=== PATIENT | female | born 1980 | race Caucasian/White ===

== ENCOUNTER 2016-06-17 05:50 | Inpatient (IN) | payer OTHER ==
[2016-06-17] MEDS ORDERED: EPSOM SALT 454 GM TP PRN (06:20)
[2016-06-17] MEDS ORDERED: TERBUTALINE SULFATE 1 MG/ML VIAL IV PRN (06:20)
[2016-06-17] MEDS ORDERED: LR 1,000 ML IV PRN (06:20)
[2016-06-17] MEDS ORDERED: LIDOCAINE 1% 30 ML SDV SC PRN (06:20)
[2016-06-17] MEDS ORDERED: OXYTOCIN/RINGERS LACTATE 1,000 ML IV PRN (06:20)
[2016-06-17] MEDS ORDERED: MINERAL OIL 60 ML OIL TP PRN (06:20)
[2016-06-17 06:36] LABS: % IMMATURE GRANULYOCYTES 0.6 % (0.0-1.1); ABSOLUTE IMMATURE GRANULOCYTES 0.06 10^3/uL (0.00-0.10); ADD DIFF? NO; ADD MORPH? NO; ADD SCAN? NO; ATYPICAL LYMPHOCYTE FLAG 30 (0-99); FRAGMENT RBC FLAG 0 (0-99); HEMATOCRIT 43.9 % (38.0-47.0); HEMOGLOBIN 15.3 g/dL (12.6-16.3); LEFT SHIFT FLG 0 (0-99); LIPEMIA HEMOLYSIS FLAG 90 (0-99); MEAN CELL HEMOGLOBIN 32.3 pg (27.9-34.1); MEAN CELL HEMOGLOBIN CONCENTR. 34.9 g/dL (32.4-36.7); MEAN CELL VOLUME 92.8 fL (81.5-99.8); MEAN PLATELET VOLUME 10.2 fL (8.7-11.7); PLATELET CLUMPS FLAG 0 (0-99); PLATELET COUNT 195 10^3/uL (150-400); RED BLOOD CELL COUNT 4.73 10^6/uL (4.18-5.33); RED CELL DISTRIBUTION WIDTH 12.7 % (11.5-15.2)
--- NOTE | 2016-06-17 06:45 | OBPROG ---
OBG Progress Note Assessment/Plan: Assessment:cat 2 fhr coping fair through the contractions discussed ways to assist with pain relief tub to assist with relaxation exam 4-5/80/-1 cephalic tolac Plan:expectant management of labor 06/17/16 06:43 Subjective: Coping fair. " I am tired" I have not changed much. I just want to sleep. Objective: 06/17/16 06:20 - SVE Dilation (cm): 4 Effacement (%): 80 Station: -2 Current Contraction Pattern: Regular FHR (bpm): 135 FHR Pattern Variability: Moderate FHR Category: 1 Membranes: Intact - Physical Exam General Appearance: WD/WN, alert, no apparent distress Respiratory: lungs clear Cardiac/Chest: regular rate, rhythm Abdomen: normal bowel sounds Membranes: Intact Extremities: normal range of motion, Jodee's sign (negative bilaterally) Skin: normal color, warm/dry Neuro/Psych: no motor/sensory deficits, alert, normal mood/affect, oriented x 3 ICD10 Worksheet Patient Problems: Problems Problem Status Diagnosed Arrest of descent, delivered, current hospitalization Acute delivery delivered Acute Meconium stained amniotic fluid, delivered, current hospitalization Acute Spontaneous onset of labor Acute
--- NOTE | 2016-06-17 07:36 | GHP ---
[f rep st] HISTORY AND PHYSICAL DATE OF ADMISSION: 06/17/2016 HISTORY OF PRESENT ILLNESS: The patient is a 35-year-old, 2, para 1, with an EDC of 06/17/19 17. The patient is 41 and 6/7 weeks' gestational age. Harder, more frequent contractions x2 hours, so 0500 on 06/16/2016. MEDICAL HISTORY: The patient has a history of cystitis as a child. History of SVT, negative stress tests and negative bubble study. History of heart palpitations with a negative workup. History of n orovirus in June of 2015. 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 Desired [facility] testing. Progenity testing was negative. PAST SURGICAL HISTORY: The patient had a previous . HISTORY: With this , benign. Previous : In 10/2013, a female at 7 poun ds, 1 ounce at 42 weeks' gestation, 48 hours of labor, , arrest of descent with a failed vac uum. GYNECOLOGICAL HISTORY: Previous OCP use. Paps were within normal limits. LABS: The patient is O positive. Antibody negative. RPR is nonreactive. Rubella is immune. Hepat itis is negative. HIV is negative. Trio screen: Again, patient was a positive CF carrier, is a positive CF carrier. Gonorrhea and chlamydia are negative. AFP was negative. 1 shasha r GTT was within normal limits at 124, and GBS is negative. At 36 weeks, the baby was in the 95th percentile. YANCY was 21. The patient is desiring a . On a dmission, patient was 4-5 cm, 80% effaced, -2 station, cephalic, tiffanie irregularly. On admissi on, baby was a category 2. 500 cc LR bolus was requested. ASSESSMENT: GENERAL: Patient is awake, alert, oriented x3. LUNGS: Clear bilaterally. ABDOMEN: B owel sounds are positive in all 4 quadrants. EXTREMITIES: DTRs are 1+ bilaterally. Homans sign is negative. Contractions are firm on palpation, although irregular. PLAN OF CARE: A tub to assist with pain relief. GBS is negative. Discussed pain relief options. A t this time, patient is just using the tub to assist with pain relief and expectant management of lab or. /[id number]/MODL
[2016-06-17] MEDS ORDERED: OXYTOCIN 10 UNIT/ML VIAL ONE (08:48)
[2016-06-17] MEDS ORDERED: TERBUTALINE SULFATE 1 MG/ML VIAL ONE (08:48)
[2016-06-17] MEDS ORDERED: LIDOCAINE 1% 30 ML SDV ONE (08:48)
[2016-06-17] MEDS ORDERED: AMMONIA AROMATIC 1 EACH AMP IH ONE ×2 (08:48→08:49)
[2016-06-17] MEDS ORDERED: MISOPROSTOL 200 MCG TAB ONE (08:49)
[2016-06-17] MEDS ORDERED: PROMETHAZINE HCL 25 MG/ML INJ IM ONE (09:20)
--- NOTE | 2016-06-17 09:24 | OBPROG ---
OBG Progress Note Assessment/Plan: Assessment:cat 2 fhr coping fair through the contractions 5-7 minutes apart discussed ways to assist with pain relief/ willing to try morphine for sleep 0 re exam minimal change to the strength of the contractions tolac dr. orellana aware of poc consulted [id number] 500cc bolus with medication for sleep Plan:expectant management of labor 06/17/16 06:43 06/17/16 09:22 06/17/16 09:27 Objective: 06/17/16 06:20 Patient ABO/Rh O POSITIVE 06/17/16 06:20 Current Contraction Pattern: Irregular FHR Pattern Variability: Moderate FHR Category: 2 Membranes: Intact ICD10 Worksheet Patient Problems: Problems Problem Status Diagnosed Arrest of descent, delivered, current hospitalization Acute delivery delivered Acute Meconium stained amniotic fluid, delivered, current hospitalization Acute Spontaneous onset of labor Acute
--- NOTE | 2016-06-17 16:16 | OBPROG ---
OBG Progress Note Assessment/Plan: Assessment:cat 2 fhr change to cervix 7-8/100/-2 cephalic contractions irregular resting with the morphine sleep discussed pitocin augmentation/ arom after a few hours with pitocin discussed pain medication options with contractions and pitocin for augmentation patient and family in agreement with POC consult with dr. andreina orellana on POC tolac anesthesia informed of presence on the deck continuous monitoring Plan:expectant management of labor 06/17/16 06:43 06/17/16 09:22 06/17/16 09:27 06/17/16 16:12 Subjective: Feeling more rested more comfotable. Ok with POC pitocin and arom Objective: 06/17/16 06:20 Patient ABO/Rh O POSITIVE 06/17/16 06:20 - SVE Dilation (cm): 7 Effacement (%): 100 Station: -2 Current Contraction Pattern: Irregular FHR (bpm): 145 FHR Pattern Variability: Moderate FHR Category: 2 Membranes: Intact ICD10 Worksheet Patient Problems: Problems Problem Status Diagnosed Arrest of descent, delivered, current hospitalization Acute delivery delivered Acute Meconium stained amniotic fluid, delivered, current hospitalization Acute Spontaneous onset of labor Acute
[2016-06-17] MEDS ORDERED: OXYTOCIN/RINGERS LACTATE 500 ML IV SCH (16:30)
[2016-06-17] MEDS ORDERED: PHENYLEPHRINE HCL 100 MCG/ML SYR ONE (19:08)
[2016-06-17] MEDS ORDERED: BUPIVACAINE 0.25% 30 ML SDV ONE (19:08)
[2016-06-17] MEDS ORDERED: fentaNYL 2MCG/ML/BUP 0.1% RTU 100 ML BAG EP ONE (19:08)
--- NOTE | 2016-06-17 19:14 | OBPROG ---
OBG Progress Note Assessment/Plan: Assessment:cat 2 fhr change to cervix 7-8/100/-1 cephalic oa contractions regular pitocin at 8mu arom clear fluid thinking about an epidural for pain relief consult with dr. andreina orellana on POC tolac anesthesia informed of presence on the deck continuous monitoring Plan:augmenation of labor arom 06/17/16 06:43 06/17/16 09:22 06/17/16 09:27 06/17/16 16:12 06/17/16 19:13 Subjective: Doing well. Coping well with the contractions Objective: 06/17/16 06:20 Patient ABO/Rh O POSITIVE 06/17/16 06:20 - SVE Dilation (cm): 7 Effacement (%): 90 Station: -1 Current Contraction Pattern: Regular FHR (bpm): 145 FHR Pattern Variability: Moderate FHR Category: 1 Membranes: AROM Amniotic Fluid Color: Clear ICD10 Worksheet Patient Problems: Problems Problem Status Diagnosed Arrest of descent, delivered, current hospitalization Acute delivery delivered Acute Meconium stained amniotic fluid, delivered, current hospitalization Acute Spontaneous onset of labor Acute
[2016-06-17] MEDS ORDERED: PHENYLEPHRINE HCL 100 MCG/ML SYR IVP PRN (20:02)
[2016-06-17] MEDS ORDERED: NALOXONE HCL 0.4 MG/ML INJ IVP PRN (20:02)
[2016-06-17] MEDS ORDERED: ONDANSETRON 4 MG/2 ML VIAL IVP PRN (20:02)
[2016-06-17] MEDS ORDERED: fentaNYL 2MCG/ML/BUP 0.1% RTU 100 ML EP SCH (20:30)
[2016-06-17] MEDS ORDERED: LR 500 ML IV SCH (20:30)
--- NOTE | 2016-06-17 21:11 | OBPROG ---
OBG Progress Note Assessment/Plan: Assessment:cat 2 fhr change to cervix 8/100/0 cephalic oa contractions regular pitocin at 8mu arom clear fluid pitocin at 6mu epidural for pain relief at patient request, repeat of epidural first did not have great pain relief pain tolerated well consult with dr. anrdeina orellana on POC tolac anesthesia aware and available in house continuous monitoring Plan:augmentation of labor 06/17/16 06:43 06/17/16 09:22 06/17/16 09:27 06/17/16 16:12 06/17/16 19:13 06/17/16 21:09 Subjective: feeling better after replacement of epidural pain relief to patients satisfaction Objective: 06/17/16 06:20 Patient ABO/Rh O POSITIVE 06/17/16 06:20 - SVE Dilation (cm): 8 Effacement (%): 100 Station: 0 Current Contraction Pattern: Regular FHR (bpm): 145 FHR Pattern Variability: Moderate FHR Category: 2 Amniotic Fluid Color: Clear ICD10 Worksheet Patient Problems: Problems Problem Status Diagnosed Arrest of descent, delivered, current hospitalization Acute delivery delivered Acute Meconium stained amniotic fluid, delivered, current hospitalization Acute Spontaneous onset of labor Acute
--- NOTE | 2016-06-17 23:56 | OBPROG ---
OBG Progress Note Assessment/Plan: Assessment:cat 2 fhr change to cervix 10/100/+2 cephalic oa pitocin off clear fluid epidural for pain relief/ denies pain consult with dr. andreina orellana on POC tolac anesthesia aware and available in house continuous monitoring Plan:will labor down at patient request 06/17/16 06:43 06/17/16 09:22 06/17/16 09:27 06/17/16 16:12 06/17/16 19:13 06/17/16 21:09 06/17/16 23:54 Subjective: HAving extreme anxiety. Talked through patient concerns Objective: 06/17/16 06:20 Patient ABO/Rh O POSITIVE 06/17/16 06:20 - SVE Dilation (cm): 10 Effacement (%): 100 Station: +2 Current Contraction Pattern: Regular FHR (bpm): 135 FHR Pattern Variability: Moderate FHR Category: 1 Amniotic Fluid Color: Clear ICD10 Worksheet Patient Problems: Problems Problem Status Diagnosed Arrest of descent, delivered, current hospitalization Acute delivery delivered Acute Meconium stained amniotic fluid, delivered, current hospitalization Acute Spontaneous onset of labor Acute
[2016-06-18] MEDS ORDERED: LR 500 ML IV ONE (03:35)
[2016-06-18] MEDS ORDERED: ceFAZolin 2 GM/DEXTROSE 100 ML IV ONE (03:35)
[2016-06-18] MEDS ORDERED: DEXAMETHASONE 4 MG/ML VIAL ONE (03:40)
[2016-06-18] MEDS ORDERED: LIDO/EPI 2% **for epidural** 20 ML SDV ONE (03:40)
[2016-06-18] MEDS ORDERED: ONDANSETRON 4 MG/2 ML VIAL ONE (03:40)
[2016-06-18] MEDS ORDERED: OXYTOCIN 100 UNITS/10 ML VIAL ONE (03:42)
[2016-06-18] MEDS ORDERED: METHYLERGONOVINE MAL 0.2 MG/ML INJ ONE (03:54)
[2016-06-18] MEDS ORDERED: LR 1,000 ML IV SCH (04:00)
--- NOTE | 2016-06-18 04:00 | OBPROG ---
OBG Progress Note Assessment/Plan: Assessment: g2 - arrest of descent hx prior c section Plan: repeat c section 06/18/16 03:54 Subjective: patient has been pushing for more than 2 hours. she pushed for the first hour and a half with octavio and I was called in the room to assess. we pushed for greater than 30 minutes with no descent of the head past zero station. patient has made good maternal effort. she had hoped to avoid a repeat section but would rather do it now if it seems like it will be necessary. long discussion about options. decision make to proceed with repeat c section. consent signed Objective: 06/17/16 06:20 Patient ABO/Rh O POSITIVE 06/17/16 06:20 - SVE Dilation (cm): 10 Effacement (%): 100 Station: 0 Current Contraction Pattern: Regular FHR Pattern Variability: Moderate FHR Category: 2 ICD10 Worksheet Patient Problems: Problems Problem Status Diagnosed Arrest of descent, delivered, current hospitalization Acute delivery delivered Acute Meconium stained amniotic fluid, delivered, current hospitalization Acute Spontaneous onset of labor Acute
[2016-06-18] MEDS ORDERED: PHENYLEPHRINE HCL 100 MCG/ML SYR ONE (04:05)
[2016-06-18] MEDS ORDERED: fentaNYL 100 MCG/2 ML INJ IVP PRN (04:32)
[2016-06-18] MEDS ORDERED: HYDROmorphONE/DILAUDID 1 MG/ML SYR IVP PRN (04:32)
[2016-06-18] MEDS ORDERED: MEPERIDINE 25 MG/ML SYR IVP PRN (04:32)
[2016-06-18] MEDS ORDERED: OXYCODONE/APAP 5/325 TAB PO PRN (04:32)
[2016-06-18] MEDS ORDERED: HYDROCODONE/APAP 5/325 TAB PO PRN (04:32)
[2016-06-18] MEDS ORDERED: BISACODYL 10 MG SUPP PR PRN (05:23)
[2016-06-18] MEDS ORDERED: POLYETHYLENE GLYCOL 3350 17 GM PKT PO PRN (05:23)
[2016-06-18] MEDS ORDERED: LACTULOSE 20 GM/30 ML UDCUP PO PRN (05:23)
[2016-06-18] MEDS ORDERED: MAGNESIUM HYDROXIDE 30 ML UDCUP PO PRN (05:23)
[2016-06-18] MEDS ORDERED: NALOXONE HCL 0.4 MG/ML INJ IVP PRN ×2 (05:23→05:51)
--- NOTE | 2016-06-18 05:39 | OBPROC ---
- Delivery Pre-op Diagnoses: IUP @ 40 05/27, arrest of descent, history of prior section Post-op Diagnoses: same plus uterine rupture Procedure: Repeat, Low Transverse Surgeon: Elma Perkins Certified Peer Specialist: Cierra urrutia) Anesthesiologist: Ashvin Vann Anesthesia: Spinal Complications: Other (Specify) (utertine rupture) Findings: part protruding through prior uterine incision otherwise normal ovaries, uterus, tubes Specimen(s)/Path: Placenta EBL: 100 - [place] Info A Delivery Date: 06/18/16 Delivery Time: 04:20 Sex of Infant: Male Score (1 Min): 4 Score (5 Min): 9
[2016-06-18] MEDS ORDERED: HYDROmorphONE/DILAUDID 6 MG/30 ML PCA IV PRN (05:51)
[2016-06-18] MEDS ORDERED: KETOROLAC 30 MG/1 ML SDV ONE (05:53)
[2016-06-18] MEDS: KETOROLAC 30 MG/1 ML SDV IVP SCH ×4 (05:58→23:39)
[2016-06-18] MEDS: HYDROCODONE/APAP 5/325 TAB PO PRN ×3 (15:14→23:38)
[2016-06-18] MEDS: SENNOSIDES/DOCUSATE SODIUM TAB PO SCH (18:07)
[2016-06-19] MEDS: SENNOSIDES/DOCUSATE SODIUM TAB PO SCH ×3 (02:24→22:11)
[2016-06-19] MEDS: HYDROCODONE/APAP 5/325 TAB PO PRN ×5 (03:30→22:11)
[2016-06-19] MEDS: IBUPROFEN 600 MG TAB PO PRN ×3 (05:45→19:08)
--- NOTE | 2016-06-19 10:05 | SOAPPROG ---
SOAP Progress Note Assessment/Plan: Assessment: doing well pain managed well without difficulty incision remains covered dry , clean voiding without difficulty ff@u scant rubra ambulating passing gas Plan:po day 1 06/17/16 06:43 06/17/16 09:22 06/17/16 09:27 06/17/16 16:12 06/17/16 19:13 06/17/16 21:09 06/17/16 23:54 06/19/16 10:03 Objective: Vital Signs Temp Pulse Resp BP Pulse Ox 36.4 C 73 16 85/49 L 95 06/19/16 08:00 06/19/16 08:00 06/19/16 08:00 06/19/16 08:00 06/19/16 08:00 Laboratory Results 06/19/16 03:50 06/18/16 06/19/16 06/20/16 05:59 05:59 05:59 Intake Total 7130 Output Total 800 92618 Balance -800 -4126 - Time Spent With Patient Time Spent With Patient: 20 minutes - Pending Discharge Pending Discharge Within 48 Hours: Yes Pending Discharge Date: 06/21/16 Pending Discharge Time: 11:00 ICD10 Worksheet Patient Problems: Problems Problem Status Diagnosed Arrest of descent, delivered, current hospitalization Acute delivery delivered Acute Meconium stained amniotic fluid, delivered, current hospitalization Acute Spontaneous onset of labor Acute
--- NOTE | 2016-06-19 10:06 | SOAPPROG ---
SOAP Progress Note Assessment/Plan: Assessment: doing well pain managed well without difficulty incision remains covered dry , clean voiding without difficulty ff@u scant rubra ambulating passing gas Plan:po day 1 06/17/16 06:43 06/17/16 09:22 06/17/16 09:27 06/17/16 16:12 06/17/16 19:13 06/17/16 21:09 06/17/16 23:54 06/19/16 10:03 Objective: Vital Signs Temp Pulse Resp BP Pulse Ox 36.4 C 73 16 85/49 L 95 06/19/16 08:00 06/19/16 08:00 06/19/16 08:00 06/19/16 08:00 06/19/16 08:00 Laboratory Results 06/19/16 03:50 06/18/16 06/19/16 06/20/16 05:59 05:59 05:59 Intake Total 7130 Output Total 800 07135 Balance -800 -5993 Physical Exam - Physical Exam General Appearance: WD/WN, alert Respiratory: chest non-tender, lungs clear, normal breath sounds Cardiac/Chest: regular rate, rhythm Abdomen: normal bowel sounds Pelvic Exam: vaginal bleeding (scant rubra lochia) Skin: normal color, warm/dry Extremities: normal range of motion, Jodee's sign (negative bilaterally) Neuro/Psych: no motor/sensory deficits, alert, normal mood/affect, oriented x 3 ICD10 Worksheet Patient Problems: Problems Problem Status Diagnosed Arrest of descent, delivered, current hospitalization Acute delivery delivered Acute Meconium stained amniotic fluid, delivered, current hospitalization Acute Spontaneous onset of labor Acute
[2016-06-20] MEDS: HYDROCODONE/APAP 5/325 TAB PO PRN ×6 (02:25→22:32)
[2016-06-20] MEDS: IBUPROFEN 600 MG TAB PO PRN ×4 (02:25→20:46)
--- NOTE | 2016-06-20 09:02 | OBPROG ---
OBG Progress Note Assessment/Plan: Assessment: 35 y/o POD # 2 s/p Rpt LTCS with uterine rupture. Plan: Will adjust [place] to hydocodone 2 tabs Q 4 hours and then Ibuprofen. Bowel protocol, ambulate with assistance and pt to shower today. support and routine POC now. 06/20/16 09:04 Subjective: Pt continues to improve today. Her pain is well controlled on 2 [place] Q 4 hours and Ibuprofen. She is ambulating and voiding and having min lochia. Baby is nursing well and she has min nipple soreness. Objective: 06/19/16 03:50 Patient ABO/Rh O POSITIVE 06/17/16 06:20 Temp Pulse Resp BP Pulse Ox 36.7 C 72 16 95/60 L 95 06/20/16 03:04 06/20/16 03:04 06/20/16 03:04 06/20/16 03:04 06/20/16 03:04 Uterine Position/Fundal Height: Umbilicus -2 Uterine Tone: Firm - Physical Exam General Appearance: WD/WN, alert, no apparent distress Neck: non-tender, full range of motion, supple Respiratory: chest non-tender, lungs clear, normal breath sounds Cardiac/Chest: regular rate, rhythm Abdomen: normal bowel sounds, incision (c/d/i) Extremities: swelling (no), Jodee's sign (neg) ICD10 Worksheet Patient Problems: Problems Problem Status Diagnosed Arrest of descent, delivered, current hospitalization Acute delivery delivered Acute Meconium stained amniotic fluid, delivered, current hospitalization Acute Spontaneous onset of labor Acute
[2016-06-20] MEDS ORDERED: oxyCODONE IR 5 MG TAB PO PRN (09:11)
[2016-06-20] MEDS: SENNOSIDES/DOCUSATE SODIUM TAB PO SCH ×2 (18:02→20:46)
[2016-06-21] MEDS: HYDROCODONE/APAP 5/325 TAB PO PRN ×5 (02:30→21:41)
[2016-06-21] MEDS: IBUPROFEN 600 MG TAB PO PRN ×4 (02:30→21:39)
[2016-06-21] MEDS: SENNOSIDES/DOCUSATE SODIUM TAB PO SCH ×2 (08:33→21:39)
[2016-06-21 11:49] VITALS: RESP 16
--- NOTE | 2016-06-21 12:27 | SOAPPROG ---
SOAP Progress Note Assessment/Plan: Assessment: pod#3 s/p RPLTCS - failed - uterine rupture pain management issues - did not get duramorph breast feeding Plan: pain control discharge tomorrow staple removal 06/21/16 12:25 06/21/16 12:26 Subjective: patient is doing well overall. is still struggling with pain control issues. is starting to get better under control. I have recommended Cayetano stay until tomorrow to better get pain controlled before discharge. she is ambulating, passing gas, had a bowel movement. she is voiding without difficulty. scant vaginal bleeding. breast feeding is going well. Objective: Vital Signs Temp Pulse Resp BP Pulse Ox 36.3 C 67 16 97/59 L 95 06/21/16 08:00 06/21/16 08:00 06/21/16 08:00 06/21/16 08:00 06/21/16 08:00 Laboratory Results 06/19/16 03:50 06/20/16 06/21/16 06/22/16 05:59 05:59 05:59 Output Total 800 Balance -800 Physical Exam - Physical Exam General Appearance: WD/WN, alert, no apparent distress Respiratory: chest non-tender, lungs clear, normal breath sounds Cardiac/Chest: normal peripheral pulses, regular rate, rhythm Abdomen: normal bowel sounds, non-tender, soft, other (fundus firm and non tender) Skin: normal color, warm/dry, other (incision clean dry and intact - twin) Extremities: normal range of motion, non-tender, normal inspection, normal capillary refill Neuro/Psych: no motor/sensory deficits, alert, normal mood/affect, oriented x 3 ICD10 Worksheet Patient Problems: Problems Problem Status Diagnosed Arrest of descent, delivered, current hospitalization Acute delivery delivered Acute Meconium stained amniotic fluid, delivered, current hospitalization Acute Spontaneous onset of labor Acute
[2016-06-22] MEDS: IBUPROFEN 600 MG TAB PO PRN ×2 (03:19→09:30)
[2016-06-22] MEDS: HYDROCODONE/APAP 5/325 TAB PO PRN ×3 (03:19→14:26)
[2016-06-22 08:33] VITALS: BP 100/55; PULSE 68; TEMP 97.6; O2SAT 93
[2016-06-22] MEDS: SENNOSIDES/DOCUSATE SODIUM TAB PO SCH (09:11)
--- NOTE | 2016-06-22 09:45 | OBPROG ---
OBG Progress Note Assessment/Plan: Assessment: s/p RCS with uterine rupture POD #4 - pt is stable Plan: Plan for d/c home later today Instructions reviewed with pt Rx given for Motrin, [place] and Apno Cont PNV Pelvic rest RTC in 2 weeks for incision check 06/22/16 09:42 Subjective: Pt seen and examined. Doing well with no complaints. Pain is well controlled. Pt is OOB, ze diet, voiding and BM x 1. Minimal lochia. without difficulty. Objective: 06/19/16 03:50 Patient ABO/Rh O POSITIVE 06/17/16 06:20 Temp Pulse Resp BP Pulse Ox 36.4 C 68 16 100/55 L 93 06/22/16 08:32 06/22/16 08:32 06/22/16 08:32 06/22/16 08:32 06/22/16 08:32 Uterine Position/Fundal Height: Umbilicus -1 Uterine Tone: Firm - Physical Exam General Appearance: WD/WN, alert, no apparent distress Respiratory: lungs clear, normal breath sounds Cardiac/Chest: regular rate, rhythm Abdomen: normal bowel sounds, soft, flatus (+), incision (C/D/I with steri strips) Genitourinary: lochia (minimal) Extremities: non-tender, normal inspection Neuro/Psych: alert, normal mood/affect, oriented x 3 ICD10 Worksheet Patient Problems: Problems Problem Status Diagnosed Arrest of descent, delivered, current hospitalization Acute delivery delivered Acute Meconium stained amniotic fluid, delivered, current hospitalization Acute Spontaneous onset of labor Acute
--- NOTE | 2016-06-22 21:04 | GOP ---
[f rep st] OPERATIVE REPORT DATE OF OPERATION: 06/18/2016 SURGEON: Elma Perkins DO PHOTO MANAGER: Cierra Farah did scrub in for part of the procedure ANESTHESIA: Spinal. ANESTHESIOLOGIST: Ashvin Vann PREOPERATIVE DIAGNOSIS: 1. Intrauterine at 40-1/7 weeks' gestation. 2. Arrest of descent with history of previous section. POSTOPERATIVE DIAGNOSIS: 1. Intrauterine at 40-1/7 weeks' gestation. 2. Arrest of descent with history of previous section. 3. Plus uterine rupture. PROCEDURE PERFORMED: Repeat low transverse section. FINDINGS: 1. Viable male in the cephalic presentation, but delivered breech at 4:20 a.m., Apgars were 4 and 9. 2. Intact placenta with 3-vessel cord. 3. Normal ovaries, uterus, and tubes. ESTIMATED BLOOD LOSS: 50-100 cc. INDICATIONS: Patient is a 35-year-old, 2, para 1-0-0-1, who has a history of a previous low transverse section for arrest of descent after a failed vacuum. Patient presented to Labor and Delivery on 06/17/2016 after a 2-day history of prodromal labor. She was morphine rested and got to 8 cm spontaneously. Patient was having spaced out contractions and was not having any further change of her cervix, so management options were discussed with the patient. She elected for artificial rupture of membranes and low-dose augmentation with Pitocin. She had been extensively counseled on the risk of uterine rupture and indications for a section. After patient's membranes were artificially ruptured, she did receive an epidural which provided adequate pain relief. Patient was only on maximum dose of 6 milliunits of Pitocin. She progressed to completely dilated and began pushing. Patient's labor management during this course was managed by Leann Duran and I was in-house co-managing the patient. The patient was pushing with Leann. I was called into the room after patient had been pushing for an hour and a half to assess the labor progress. status remained reassuring. I pushed with the patient for approximately 20 minutes. Caput was lower down within the pelvis, but the head did not descend past 0 station. Patient had a history of significant PTSD following her last delivery and did not want to keep pushing if she was not going to have a successful vaginal delivery. I discussed at that time that it seemed highly unlikely given arrest of descent and minimal progress with labor pushing, so decision was made to proceed with a primary low transverse section, and patient was transferred back to the operating room. DESCRIPTION OF PROCEDURE: During that transportation, her epidural catheter had become dislodged, so patient was seated on the operating room table and spinal anesthesia was obtained. She was given 2 g of Ancef, placed on the operating room table in the dorsal supine position with a leftward tilt, and prepped and draped in a normal sterile fashion. A Iglesias catheter was then placed. Venodynes were placed on her lower extremities. Anesthesia was assessed and found to be adequate. The previous keloid scar incision was excised. The incision was then carried through to the underlying layer of fascia with the Bovie and the fascia was then nicked in the midline. The fascial incision was extended laterally. At that time, a moderate amount of somewhat blood-tinged fluid was noted. I was able to feel a mobile mass in the midabdomen, which was questionable for a part versus the Iglesias bulb. The rectus muscle was intact. The rectus muscle was dissected superiorly and inferiorly off the rectus muscle , and I made a small defect in the rectus muscle superior just underneath the umbilicus. The rectus muscle was then in the midline down to the level just above the bladder. At that time, the uterus was evaluated and a part was noted to be protruding through the previous hysterotomy consistent with uterine rupture. At that time, the uterine incision was extended digitally. The head was noted to be low within the pelvis and then the nurse used a left hand to elevate the head up out of the pelvis. I was then able to grasp the 's head and elevate it further and, because of the lack of tone in the uterus, the baby then flipped to transverse, then breech. The infant's buttocks were then delivered through the incision and the legs were delivered. The arms were delivered and the head was then delivered. The baby was noted to have decreased tone. Cord was clamped x2 and cut, and the infant was handed off to a waiting nurse practitioner. Intact placenta with 3-vessel cord delivered without difficulty. The uterus was then exteriorized and cleared of all clots and debris, and wrapped in a moist laparotomy sponge. The hysterotomy was noted to be hemostatic and no bleeding was noted. Pitocin was then started and uterine tone significantly increased. The hysterotomy was then closed with 0 Vicryl in a running, locked fashion. A second 0 Vicryl stitch was used to imbricate the uterine incision. Hemostasis was assured. Ovaries, uterus, and tubes remained unremarkable. The uterus was then returned to the patient's abdomen. The gutters were cleared of all clots and debris. The peritoneum was reapproximated with 3-0 Vicryl in a running fashion. Rectus muscle was reapproximated with 2-0 Vicryl in a running fashion. Fascia was closed with 0 Vicryl in a running fashion. Subcuticular tissue was reapproximated with 3-0 Vicryl in a running fashion. The skin was then closed with twin. Sponge, lap, and needle counts were correct x2. Patient was transported to recovery room in stable condition. She and her were both debriefed of the intraoperative finding of the uterine rupture. Patient and baby were doing well following procedure. FINDINGS: Uterine rupture along previous hysterotomy. /[id number]/MODL MTDD
== END 2016-06-22 16:00 | disposition home or self-care (01) | DRG 765 ==
LOC: INTOOBSV 05:50 → OBSVTOIN 05:50 → FLD 05:50 → FOB 06-18 07:30
PROVIDERS: ADMIT Obstetrics & Gynecology; ATTEND Obstetrics & Gynecology
PROC: 10D00Z1 Extraction of Products of Conception, Low, Open Approach (ICD-10-PCS; principal; 2016-06-18)
PROC: 10907ZC Drainage of Amniotic Fluid, Therapeutic from Products of Conception, Via Natural or Artificial Opening (ICD-10-PCS; principal; 2016-06-18)
PROC: 3E033VJ Introduction of Other Hormone into Peripheral Vein, Percutaneous Approach (ICD-10-PCS; principal; 2016-06-18)
DX: O62.1 Secondary uterine inertia (principal); O71.1 Rupture of uterus during labor; O34.219 Maternal care for unspecified type scar from previous cesarean delivery; Z37.0 Single live birth; Z3A.40 40 weeks gestation of pregnancy
CPT/HCPCS: G0463; J0690; J1100; J1170; J1885; J2210; J2370; J2405; J2550; J2590; J3105